=== PATIENT | female | born 1985 | race Caucasian/White ===

== ENCOUNTER 2017-10-02 12:58 | Emergency (ER) | payer OTHER ==
[~2017-10-02] VITALS: Ht 175.3 cm; Wt 86.4 kg
[2017-10-02] MEDS ORDERED: VALIUM5 MG PO (14:32)
[2017-10-02] MEDS ORDERED: MOTRIN600 MG PO (14:32)
[2017-10-02 14:51] VITALS: BP 147/94
== END 2017-10-02 14:51 | disposition home or self-care (01) ==
LOC: EME 12:58
DX: M54.5 Low back pain (principal); F17.200 Nicotine dependence, unspecified, uncomplicated
CPT/HCPCS: 72100; 72220; 99281; 99284

== ENCOUNTER 2017-10-11 12:00 | Emergency (ER) | payer OTHER ==
[~2017-10-11] VITALS: Ht 175.3 cm; Wt 100.2 kg
[~2017-10-11 12:00] MED LIST: MOTRIN600 MG PO; VALIUM5 MG PO
[2017-10-11] MEDS ORDERED: MOTRIN800 MG PO (12:20)
[2017-10-11 12:44] VITALS: BP 137/85
== END 2017-10-11 12:47 | disposition home or self-care (01) ==
LOC: EME 12:00
DX: S50.01XA Contusion of right elbow, initial encounter (principal); F17.210 Nicotine dependence, cigarettes, uncomplicated; V49.50XA Passenger injured in collision with unspecified motor vehicles in traffic accident, initial encounter; Y92.415 Exit ramp or entrance ramp of street or highway as the place of occurrence of the external cause